=== PATIENT | female | born 1995 | race Caucasian/White ===

== ENCOUNTER 2017-04-08 14:54 | Emergency (ER) | payer SELFPAY ==
[~2017-04-08] VITALS: Ht 152.4 cm; Wt 63.6 kg
[~2017-04-08 14:54] MED LIST: FLEXERIL 1010 MG/TAB PO
[2017-04-08 14:57] VITALS: BP 117/71; TEMP 98.7
[2017-04-08 15:51] LABS: BASO % 0.4 % (0.0-2.0); EOS # 0.3 (0.0-0.7); EOS % 2.6 % (0-4.0); GRAN # 7.2 (1.4-6.5); GRAN % 70.9 % (42.2-75.2); HEMATOCRIT 39.6 % (35.0-45.0); HEMOGLOBIN 13.3 g/dl (12.0-15.0); LYMPH % 19.8 % (20.0-51.0); MEAN CELL VOLUME 89 fl (80.0-95.0); MEAN CORPUSCULAR HEMOGLOBIN 30 pg (26.0-32.0); MEAN CORPUSCULAR HGB CONC 34 g/dl (33.0-37.0); MONO # 0.6 (0.1-0.6); PLATELET COUNT 295 K/mm3 (130-400); RED BLOOD COUNT 4.44 M/mm3 (4.10-5.30); WHITE BLOOD COUNT 10.1 K/mm3 (4.8-10.8)
[2017-04-08 15:59] LABS: ADJUSTED CALCIUM 8.9 mg/dL (8.4-10.2); ALBUMIN 4.5 gm/dL (3.5-5.0); BILIRUBIN,TOTAL 0.7 mg/dL (0.0-1.0); CALCIUM 9.3 mg/dL (8.4-10.2); CREATININE, serum 0.76 mg/dL (0.52-1.25); POTASSIUM 3.7 mmol/L (3.4-5.0); TOTAL PROTEIN 7.6 gm/dL (6.4-8.2)
[2017-04-08 16:40] VITALS: PULSE 86
== END 2017-04-08 16:40 | disposition home or self-care (01) ==
LOC: COL.ER 14:54
PROVIDERS: Emergency Medicine
DX: R55 Syncope and collapse (principal)
CPT/HCPCS: J7030

== ENCOUNTER 2017-06-11 15:12 | Emergency (ER) | payer SELFPAY ==
[~2017-06-11] VITALS: Ht 152.4 cm; Wt 71.8 kg
[2017-06-11 15:29] VITALS: BP 105/58; PULSE 74; TEMP 98.8
[2017-06-11] MEDS ORDERED: POLYMYXIN B/TRIMETH OS (16:43)
== END 2017-06-11 16:55 | disposition home or self-care (01) ==
LOC: COL.ER 15:12
DX: H10.9 Unspecified conjunctivitis (principal); B99.9 Unspecified infectious disease; H10.89 Other conjunctivitis

== ENCOUNTER 2017-06-15 22:39 | Emergency (ER) | payer SELFPAY ==
[~2017-06-15] VITALS: Ht 152.4 cm; Wt 68.2 kg
[~2017-06-15 22:39] MED LIST changes: +POLYMYXIN B/TRIMETH OS
[2017-06-15 22:46] VITALS: BP 136/77; PULSE 88; TEMP 98.6
== END 2017-06-16 00:13 | disposition home or self-care (01) ==
LOC: COL.ER 22:39
DX: R04.0 Epistaxis (principal); R51 Headache; Z32.02 Encounter for pregnancy test, result negative